=== PATIENT | female | born 1975 | race Caucasian/White ===

== ENCOUNTER 2019-08-29 02:30 | Emergency (ER) | payer SELFPAY ==
[~2019-08-29] VITALS: Ht 167.6 cm; Wt 95.3 kg
[2019-08-29 02:35] VITALS: BP_SYST 142
--- NOTE | 2019-08-29 02:41 | NUR ---
Patient to ER bed 6 to gown for evaluation. Side rails up. Report given to Clark SMALL.
[2019-08-29] MEDS ORDERED: ONDANSETRON HCL 4 MG/2 ML VIAL IVP ONE ×2 (03:00→05:30)
[2019-08-29] MEDS ORDERED: NACL 0.9% 1,000 ML IV ONE (03:00)
[2019-08-29] MEDS ORDERED: KETOROLAC TROMETHAMINE 30 MG VIAL IVP ONE (03:00)
--- NOTE | 2019-08-29 03:01 | NUR ---
Pt ambulates to bed in ER with c/o abdominal pain, nausea, vomiting, diarrhea, and fever. Pt states symptoms began Pablo. Pt states abdominal pain is 10/10. Pt states pain is in R lower quadrant and radiates to R flank. Pt is afebrile upon arrival to ER. Pt denies SOB and cough.
--- NOTE | 2019-08-29 03:02 | NUR ---
Urine HCG done, results negative.
--- NOTE | 2019-08-29 03:15 | NUR ---
Patient transported to radiology via wheelchair in stable condition, accompanied by chemistry laboratory technician.
--- NOTE | 2019-08-29 03:44 | NUR ---
# 22 gauge angiocath placed to rt hand. Use of asceptic technique. Opsite placed over site. Blood return noted. Blood for lab drawn from site. Flushed with 10 cc of normal saline. No evidence of infiltration noted. Patient tolerated well.
--- NOTE | 2019-08-29 03:53 | NUR ---
Pt off floor to radiology via gurney in stable condition.
[2019-08-29 04:04] LABS: CREATININE 0.69 mg/dL (0.55-1.30)
[2019-08-29 04:06] LABS: BASOPHILS % (AUTO) 0.3 % (0.0-2.0); EOSINOPHILS # (AUTO) 0.1 K/uL (0.0-0.4); EOSINOPHILS % (AUTO) 0.7 % (0.0-4.0); HEMATOCRIT 42.8 % (36-48); HEMOGLOBIN 14.5 g/dL (12.0-16.0); LYMPHOCYTES # (AUTO) 0.7 K/uL (1.0-5.5); LYMPHOCYTES % (AUTO) 4.6 % (20.5-51.5); MEAN CORPUSCULAR HEMOGLOBIN 30 pg (27-31); MEAN CORPUSCULAR HGB CONC 34 % (32-36); MEAN CORPUSCULAR VOLUME 88 fL (79.0-98.0); MONOCYTES # (AUTO) 1.1 K/uL (0.0-1.0); MONOCYTES % (AUTO) 7.2 % (1.7-9.3); NEUTROPHILS # (AUTO) 13.8 K/uL (1.8-7.7); NEUTROPHILS % (AUTO) 87.2 % (40.0-70.0); PLATELET COUNT (AUTO) 277 K/uL (130-430); RED BLOOD CELL COUNT(AUTO) 4.88 MIL/uL (4.2-6.2); RED CELL DISTRIBUTION WIDTH 12.5 % (9.0-15.0); WHITE BLOOD COUNT (AUTO) 15.9 K/uL (4.8-10.8)
[2019-08-29 04:09] LABS: ALBUMIN 3.5 g/dL (3.4-4.8); TOTAL BILIRUBIN 0.3 mg/dL (0.0-1.0)
[2019-08-29 04:24] LABS: POTASSIUM 2.7 mmol/L (3.5-5.1)
[2019-08-29 04:25] LABS: CALCIUM 7.5 mg/dL (8.4-11.0)
[2019-08-29] MEDS ORDERED: POTASSIUM CHLORIDE 20 MEQ TAB.PRT.SR PO ONE (04:30)
--- NOTE | 2019-08-29 04:51 | NUR ---
Pt medicated with potassium for a potassium of 2.7 Pt tolerated well.
--- NOTE | 2019-08-29 05:50 | NUR ---
Patient resting quietly. No acute distress noted. Vital signs within normal range.
[2019-08-29 06:25] VITALS: BP_SYST 122
--- NOTE | 2019-08-29 06:25 | NUR ---
Patient given written and verbal discharge instructions and verbalizes understanding. ER MD Robert discussed with patient the results and treatment provided. Patient in stable condition. ID arm band removed. IV catheter removed intact and dressing applied, no active bleeding. Rx of motrin, bentyl and zofran given. Patient educated on pain management and to follow up with PMD. Pain Scale 2/10. Opportunity for questions provided and answered. Medication side effect fact sheet provided.
== END 2019-08-29 06:25 | disposition home or self-care (01) ==
LOC: SED 02:30
DX: A08.4 Viral intestinal infection, unspecified (principal); R03.0 Elevated blood-pressure reading, without diagnosis of hypertension
CPT/HCPCS: 36415; 74021; 74176; 80053; 81025; 85025; 96361; 96374; 96375; 96376; 99284; J1885; J2405; J7030

== ENCOUNTER 2020-06-03 18:49 | Emergency (ER) | payer MEDICAID ==
[~2020-06-03] VITALS: Ht 167.6 cm; Wt 88.9 kg
[2020-06-03 18:55] VITALS: BP_SYST 119
[2020-06-03] MEDS ORDERED: MORPHINE 4 MG/ML INJ. SYRINGE IM ONE (19:15)
[2020-06-03 19:25] VITALS: BP_SYST 117
== END 2020-06-03 19:25 | disposition home or self-care (01) ==
LOC: SED 18:49
DX: S60.222A Contusion of left hand, initial encounter (principal); M25.552 Pain in left hip; J45.909 Unspecified asthma, uncomplicated; Z85.9 Personal history of malignant neoplasm, unspecified; X50.0XXA Overexertion from strenuous movement or load, initial encounter; Y93.89 Activity, other specified; Y92.89 Other specified places as the place of occurrence of the external cause; Y99.8 Other external cause status
CPT/HCPCS: 73130; 96372; 99283; J2270

== ENCOUNTER 2020-06-05 08:34 | Emergency (ER) | payer MEDICAID ==
[~2020-06-05] VITALS: Ht 167.6 cm; Wt 91.2 kg
[2020-06-05 08:37] VITALS: BP_SYST 146
--- NOTE | 2020-06-05 08:44 | NUR ---
Note neno in ED - 06/05/20 at 0849 by JOESPH Patient to bed 3 to [facility] for evaluation. Side rails up. Report given to GEOVANNY Rubalcava.
--- NOTE | 2020-06-05 08:49 | NUR ---
Patient to ER bed 4 to gown for evaluation. Side rails up. Report given to GEOVANNY Roque.
--- NOTE | 2020-06-05 08:52 | NUR ---
Pt to andreas, sitting up. A/O and able to communicate needs. Pt grimmacing from lower back/ hip pain.
--- NOTE | 2020-06-05 08:53 | NUR ---
ER Dr. Genao at bedside examining patient.
[2020-06-05] MEDS ORDERED: fentaNYL CITRATE/PF 100 MCG/2 ML AMP IM ONE (09:00)
--- NOTE | 2020-06-05 09:27 | NUR ---
Pt in [place], X-ray tech in room. Pt tolerating well. Continues to C/O pain.
[2020-06-05 10:07] VITALS: BP_SYST 146
--- NOTE | 2020-06-05 10:08 | NUR ---
Patient given written and verbal discharge instructions and verbalizes understanding. ER MD discussed with patient the results and treatment provided. Patient in stable condition. ID arm band removed. Rx of percocet given. Patient educated on pain management and to follow up with PMD. Pain Scale 3/10. Opportunity for questions provided and answered. Medication side effect fact sheet provided.
== END 2020-06-05 10:07 | disposition home or self-care (01) ==
LOC: SED 08:34
DX: S76.012A Strain of muscle, fascia and tendon of left hip, initial encounter (principal); J45.909 Unspecified asthma, uncomplicated; Z85.9 Personal history of malignant neoplasm, unspecified; X50.3XXA Overexertion from repetitive movements, initial encounter; Y93.89 Activity, other specified; Y92.89 Other specified places as the place of occurrence of the external cause; Y99.8 Other external cause status
CPT/HCPCS: 73502; 96372; 99283; J3010

== ENCOUNTER 2020-09-22 18:27 | Emergency (ER) | payer MEDICAID, SELFPAY ==
[~2020-09-22] VITALS: Ht 167.6 cm; Wt 90.7 kg
[2020-09-22 18:28] VITALS: BP_SYST 151
[2020-09-22 19:05] LABS: BASOPHILS % (AUTO) 0.2 % (0.0-2.0); EOSINOPHILS # (AUTO) 0.4 K/uL (0.0-0.4); EOSINOPHILS % (AUTO) 2.1 % (0.0-4.0); HEMATOCRIT 40.5 % (36-48); HEMOGLOBIN 13.5 g/dL (12.0-16.0); LYMPHOCYTES # (AUTO) 3.3 K/uL (1.0-5.5); LYMPHOCYTES % (AUTO) 18.8 % (20.5-51.5); MEAN CORPUSCULAR HEMOGLOBIN 29 pg (27-31); MEAN CORPUSCULAR HGB CONC 33 % (32-36); MEAN CORPUSCULAR VOLUME 87 fL (79.0-98.0); MONOCYTES # (AUTO) 1.3 K/uL (0.0-1.0); MONOCYTES % (AUTO) 7.6 % (1.7-9.3); NEUTROPHILS # (AUTO) 12.3 K/uL (1.8-7.7); NEUTROPHILS % (AUTO) 71.3 % (40.0-70.0); PLATELET COUNT (AUTO) 400 K/uL (130-430); RED BLOOD CELL COUNT(AUTO) 4.65 MIL/uL (4.2-6.2); RED CELL DISTRIBUTION WIDTH 12.5 % (9.0-15.0); WHITE BLOOD COUNT (AUTO) 17.3 K/uL (4.8-10.8)
[2020-09-22 19:16] LABS: CALCIUM 8.9 mg/dL (8.4-11.0); CREATININE 0.68 mg/dL (0.55-1.30); POTASSIUM 3.7 mmol/L (3.5-5.1)
[2020-09-22 19:22] LABS: INR 0.9 (0.8-1.2); PROTHROMBIN TIME 9.7 SECS (9.5-12.5)
[2020-09-22 19:25] LABS: ALBUMIN 3.7 g/dL (3.4-4.8); TOTAL BILIRUBIN 0.3 mg/dL (0.0-1.0)
[2020-09-22 20:16] LABS: BILIRUBIN,URINE NEGATIVE (NEGATIVE); BLOOD, URINE NEGATIVE (NEGATIVE); CLARITY/URINE SLIGHTLY CLOUDY (CLEAR); COLOR,URINE YELLOW (YELLOW); GLUCOSE,URINE NEGATIVE (NEGATIVE); KETONES,URINE NEGATIVE (NEGATIVE); LEUKOCYTE ESTERASE ,URINE NEGATIVE (NEGATIVE); NITRITE, URINE NEGATIVE (NEGATIVE); PROTEIN URINE NEGATIVE (NEGATIVE)
[2020-09-22 20:17] LABS: UROBILINOGEN,URINE 0.2 (0.2-1.0)
[2020-09-22 20:30] VITALS: BP_SYST 140
[2020-09-22] MEDS ORDERED: ONDANSETRON 4 MG ODT TAB PO ONE (20:30)
== END 2020-09-22 20:30 | disposition home or self-care (01) ==
LOC: SED 18:27
DX: J01.40 Acute pansinusitis, unspecified (principal); Z20.822 Contact with and (suspected) exposure to COVID-19
CPT/HCPCS: 36415; 71045; 80053; 81003; 84484; 85610; 85025; 85730; 87426; 93005; 99285; U0003; C9803

== ENCOUNTER 2021-06-09 08:42 | Emergency (ER) | payer MEDICAID, OTHER ==
[~2021-06-09] VITALS: Ht 167.6 cm; Wt 86.2 kg
[2021-06-09 08:52] VITALS: BP_SYST 118
[2021-06-09] MEDS ORDERED: EPINEPHrine 1 MG/ML AMP IM ONE (09:00)
[2021-06-09 09:27] LABS: BASOPHILS # (AUTO) 0.1 K/uL (0.0-0.2); BASOPHILS % (AUTO) 0.7 % (0.0-2.0); EOSINOPHILS # (AUTO) 0.2 K/uL (0.0-0.4); EOSINOPHILS % (AUTO) 2.3 % (0.0-4.0); HEMATOCRIT 39.2 % (36-48); HEMOGLOBIN 13.4 g/dL (12.0-16.0); LYMPHOCYTES # (AUTO) 2.6 K/uL (1.0-5.5); LYMPHOCYTES % (AUTO) 29.6 % (20.5-51.5); MEAN CORPUSCULAR HEMOGLOBIN 30 pg (27-31); MEAN CORPUSCULAR HGB CONC 34 % (32-36); MEAN CORPUSCULAR VOLUME 87 fL (79.0-98.0); MONOCYTES # (AUTO) 0.5 K/uL (0.0-1.0); MONOCYTES % (AUTO) 6.1 % (1.7-9.3); NEUTROPHILS # (AUTO) 5.4 K/uL (1.8-7.7); NEUTROPHILS % (AUTO) 61.3 % (40.0-70.0); PLATELET COUNT (AUTO) 287 K/uL (130-430); RED BLOOD CELL COUNT(AUTO) 4.51 MIL/uL (4.2-6.2); RED CELL DISTRIBUTION WIDTH 13.1 % (9.0-15.0); WHITE BLOOD COUNT (AUTO) 8.8 K/uL (4.8-10.8)
[2021-06-09 09:50] LABS: ANION GAP 9 (5-15); CALCIUM 8.7 mg/dL (8.4-11.0); CHLORIDE 103 mmol/L (98-107); CREATININE 0.72 mg/dL (0.55-1.30); GLUCOSE 122 mg/dL (70-99); POTASSIUM 3.8 mmol/L (3.5-5.1); SODIUM SERUM 138 mmol/L (136-145); UREA NITROGEN, BLOOD 9 mg/dL (8-21)
[2021-06-09 09:51] LABS: GFR AFRICAN AMERICAN 112 mL/min (>90)
[2021-06-09 09:56] LABS: ALANINE AMINOTRANSFERASE 37 U/L (12-78); ALBUMIN 3.8 g/dL (3.4-4.8); AMYLASE 38 U/L (0-100); ASPARTATE AMINOTRANSFERASE 17 U/L (10-37); LIPASE 82 U/L (73-393); TOTAL BILIRUBIN 0.7 mg/dL (0.0-1.0)
[2021-06-09 09:59] LABS: ACETONE, SERUM NEGATIVE (NEGATIVE)
[2021-06-09 10:01] LABS: BILIRUBIN,URINE NEGATIVE (NEGATIVE); BLOOD, URINE NEGATIVE (NEGATIVE); CLARITY/URINE CLEAR (CLEAR); COLOR,URINE YELLOW (YELLOW); GLUCOSE,URINE NEGATIVE (NEGATIVE); KETONES,URINE NEGATIVE (NEGATIVE); LEUKOCYTE ESTERASE ,URINE NEGATIVE (NEGATIVE); NITRITE, URINE NEGATIVE (NEGATIVE); PH,URINE 5.5 (5.0-8.0); PROTEIN URINE NEGATIVE (NEGATIVE); UROBILINOGEN,URINE 0.2 (0.2-1.0)
[2021-06-09 10:10] VITALS: BP_SYST 126
[2021-06-09] MEDS ORDERED: METF-518 PO (10:27)
== END 2021-06-09 10:10 | disposition home or self-care (01) ==
LOC: SED 08:42
DX: E11.9 Type 2 diabetes mellitus without complications (principal); R11.0 Nausea; J45.909 Unspecified asthma, uncomplicated
CPT/HCPCS: 36415; 80053; 81003; 81025; 82009; 82150; 82962; 83605; 83690; 85025; 99283; J0171